=== PATIENT | male | born 1965 | race Caucasian/White ===

== ENCOUNTER 2019-05-07 15:01 | Observation (INO) | payer BC, MEDICAID ==
[2019-05-07 15:29] LABS: ABSOLUTE NEUTROPHIL COUNT 1.96; BASO % 0.5 % (0-6); EOS % 0.3 % (0-6); GRAN % 49.5 % (47-80); HEMATOCRIT 45.5 % (42.0-52.0); HEMOGLOBIN 15.5 gm/dl (14.0-18.0); LYMPH % 41.4 % (16-45); MEAN CELL VOLUME 92.1 fl (81-97); MEAN CORPUSCULAR HEMOGLOBIN 31.4 pg (27-33); MEAN CORPUSCULAR HGB CONC 34.1 g/dl (32-36); MEAN PLATELET VOLUME 9.4 fl (7.4-10.4); MONO % 8.3 % (0-9); PLATELET COUNT 178 K/uL (130-400); RED BLOOD COUNT 4.94 M/uL (4.40-5.70); RED CELL DISTRIBUTION WIDTH 17.1 % (11.5-14.5)
--- NOTE | 2019-05-07 15:31 | Emergency Department Record ---
History of Present Illness - General Chief Complaint: Alcohol Intoxication Stated Complaint: SHAKEY,ALCOHOL POSIONING? Time Seen by Provider: 05/07/19 15:19 Source: Patient, RN notes reviewed Mode of Arrival: Ambulatory - History of Present Illness Initial Comments: drinking one fifth a day of vodka for years. He called the health line at work [facility] at [facility] and he was told to go to the ED for detox and than they would treat him. Vomiting today 6 times a day. health line [phone]. Last treatment for substance abuse was in [place] at [facility] for cocaine 20 years ago. No falls or trauma per patient. Family Dr Gunn patient complains about right upper quad pain. Patient said he had slight blood in his vomit. He states he hasn't eaten in a couple of days. Patient lives with son and . Time Since Last Drink: 6 -: Hour(s) Chronic Alcohol Use: Yes Previous Visits for Alcohol Intoxication?: Yes Recent Trauma: No Associated Symptoms: Abdominal pain, Nausea, Vomiting Treatments Prior to Arrival: None - [place] Coma Scale Eye Response: (4) Open spontaneously Motor Response: (6) Obeys commands Verbal Response: (5) Oriented Jennifer Total: 15 - Related Data Home Medications Medication Instructions Recorded Confirmed Last Taken No Home Med [NO HOME MEDS] 05/07/19 05/07/19 Unknown Allergies Allergy/AdvReac Type Severity Reaction Status Date / Time No Known Drug Intolerances Allergy Unknown PT UNSURE Verified 05/07/19 15:13 OF REACTION pistachio nut Allergy SWELLING Verified 05/07/19 15:13 OF THE TONGUE Allergies: Allergy Unknown PT UNSURE Uncoded 05/07/19 15:13 OF REACTION Travel Screening - Travel/Exposure Within Last 30 Days Have you traveled within the last 30 days?: Yes Location Detail:: [place] - Travel/Exposure Within Last Year Have you traveled outside the [place] in the last year?: No - Additonal Travel Details Have you been exposed to anyone with a communicable illness?: No - Travel Symptoms Symptom Screening: None Review of Systems Reviewed: No additional complaints except as noted below Constitutional: Reports: As per HPI. Denies: Chills, Fever, Malaise, Night sweats, Weakness, Weight change Eyes: Reports: As per HPI. Denies: Eye discharge, Eye pain, Photophobia, Vision change ENT: Reports: As per HPI. Denies: Congestion, Dental pain, Ear pain, Epistaxis, Hearing loss, Throat pain Respiratory: Reports: As per HPI. Denies: Cough, Dyspnea, Hemoptysis, Stridor, Wheezes Cardiovascular: Reports: As per HPI. Denies: Arrhythmia, Chest pain, Dyspnea on exertion, Edema, Murmurs, Orthopnea, Palpitations, Paroxysmal nocturnal dyspnea, Rheumatic Fever, Syncope Endocrine: Reports: As per HPI. Denies: Fatigue, Heat or cold intolerance, Polydipsia, Polyuria Gastrointestinal: Reports: As per HPI. Denies: Abdominal pain, Constipation, Diarrhea, Hematemesis, Hematochezia, Melena, Nausea, Vomiting Genitourinary: Reports: As per HPI. Denies: Dysuria, Frequency, Hematuria, Incontinence, Retention, Testicular pain, Testicular mass, Urgency Musculoskeletal: Reports: As per HPI. Denies: Arthralgia, Back pain, Gout, J oint swelling, Myalgia, Neck pain Skin: Reports: As per HPI. Denies: Bruising, Change in color, Change in hair/nails, Lesions, Pruritus, Rash Neurological: Reports: As per HPI. Denies: Abnormal gait, Confusion, Headache, Numbness, Paresthesias, Seizure, Tingling, Tremors, Vertigo, Weakness Psychiatric: Reports: As per HPI. Denies: Anxiety, Auditory hallucinations, Depression, Homicidal thoughts, Suicidal thoughts, Visual hallucinations Hematological/Lymphatic: Reports: As per HPI. Denies: Anemia, Blood Clots, Easy bleeding, Easy bruising, Swollen glands Past Medical History - SOCIAL HISTORY Smoking Status: Current every day smoker Alcohol Use: Heavy Drug Use: None - RESPIRATORY Hx Respiratory Disorders: No - CARDIOVASCULAR Hx Cardio Disorders: Yes Hx Hypertension: Yes - NEURO Hx Neuro Disorders: No Hx Seizures: No (denies) - GI Hx GI Disorders: Yes Hx Abdominal Pain: Yes Hx Reflux: Yes - Hx Genitourinary Disorders: No - ENDOCRINE Hx Endocrine Disorders: No - MUSCULOSKELETAL Hx Musculoskeletal Disorders: No - PSYCH Hx Psych Problems: Yes Hx Anxiety: Yes Hx Depression: Yes - HEMATOLOGY/ONCOLOGY Hx Hematology/Oncology Disorders: No Family Medical History Any Significant Family History?: Yes Hx Heart Disease: Father Hx Stroke: Brother/Sister Physical Exam - General General Appearance: Alert, Oriented x3, Cooperative, Mild distress - Head Head exam: Normal inspection - Eye Eye exam: Normal appearance, PERRL Pupils: Normal accommodation - ENT ENT exam: Normal exam, Mucous membranes moist, Normal external ear exam, Normal orophraynx, TM's normal bilaterally Ear exam: Normal external inspection. negative: External canal tenderness Nasal Exam: Normal inspection. negative: Discharge, Sinus tenderness Mouth exam: Normal external inspection, Tongue normal Teeth exam: Normal inspection. negative: Dental caries Throat exam: Normal inspection. negative: Tonsillar erythema, Tonsillar exudate - Neck Neck exam: Normal inspection, Full ROM. negative: Tenderness - Respiratory Respiratory exam: Normal lung sounds bilaterally. negative: Respiratory distre ss - Cardiovascular Cardiovascular Exam: Regular rate, Normal rhythm, Normal heart sounds - GI/Abdominal GI/Abdominal exam: Soft, Normal bowel sounds, Tenderness (right upper quad) - Rectal Rectal exam: Other (rectal exam brown stool , hemoccult sent to lab) - exam: Deferred - Extremities Extremities exam: Normal inspection, Full ROM, Normal capillary refill. negative: Tenderness - Back Back exam: Reports: Normal inspection, Full ROM. Denies: Muscle spasm, Rash noted, Tenderness - Neurological Neurological exam: Alert, Normal gait, Oriented X3, Reflexes normal - Psychiatric Psychiatric exam: Normal affect, Normal mood - Skin Skin exam: Dry, Intact, Normal color, Warm Course Vital Signs 05/07/19 15:06 Temperature 97.7 F Pulse Rate 86 Respiratory 24 Rate Blood Pressure 172/92 Pulse Ox 96 - Reevaluation(s) Reevaluation #1: discussed case with Dr Mederos and will place in observation to assist in going through detox. patient than wants to go to the alcohol treatment program his company has going through [employer]. 05/07/19 16:04 Medical Decision Making - Lab Data Result diagrams: 05/07/19 15:20 05/07/19 15:20 Disposition Clinical Impression: Alcohol withdrawal Qualifiers: Complication of substance-induced condition: uncomplicated Qualified Code(s): F10.230 - Alcohol dependence with withdrawal, uncomplicated Decision to Admit: Admit from ER Condition: (2) Stable Forms: Patient Portal Access Time of Disposition: 15:58 Quality - Quality Measures Quality Measures: N/A - Blood Pressure Screening Does Patient Have Any of the Following: No Blood Pressure Classification: Hypertensive Reading Systolic Measurement: 172 Diastolic Measurement: 92 Screening for High Blood Pressure: < First Hypertensive BP, F/U Documented > [[id number]] First Hypertensive Follow-up Interventions: Referral to alternative/primary care provider.
[2019-05-07 15:44] LABS: BLOOD UREA NITROGEN 14 mg/dL (6-20); CREATININE 0.7 mg/dL (0.7-1.2); EST GLOMERULAR FILTRATION RATE > 60 mL/min
[2019-05-07 15:45] LABS: ALCOHOL 0.159 g/dL (0-0.010); LIPASE 62 U/L (13-60); PROTHROMBIN TIME (PATIENT) 10.2 SECONDS (9.5-12.1); TOTAL PROTEIN 7.9 g/dL (6.6-8.7)
[2019-05-07] MEDS ORDERED: THIAMINE HCL IV 100 MG in 0.9 % SODIUM CHLORIDE 1000ML 1,000 ML IV SCH (15:45)
[2019-05-07 15:47] LABS: GLUCOSE,RANDOM 75 mg/dL (74-109)
[2019-05-07 15:49] LABS: ALBUMIN 4.8 g/dL (4.0-5.0); ALKALINE PHOSPHATASE 71 U/L (40-129); ALT/SGPT 26 U/L (<41); AST/SGOT 32 U/L (10.0-50.0); BILIRUBIN,DIRECT 0.2 mg/dL (0-0.3)
[2019-05-07 15:50] LABS: ACETAMINOPHEN < 5.0 ug/mL (10.0-30.0); SALICYLATE < 0.3 mg/dL (2.8-20)
[2019-05-07 15:58] LABS: AMMONIA 19 umol/L (16.0-60.0)
[2019-05-07] MEDS ORDERED: PANTOPRAZOLE SODIUM IV 40 MG VIAL IVP ONE (16:01)
[2019-05-07] MEDS ORDERED: LORAZEPAM 2 MG/ML VIAL IV PRN ×2 (16:11→16:54)
[2019-05-07] MEDS ORDERED: 0.9 % SODIUM CHLORIDE 1000ML 1,000 ML IV ONE (17:50)
[2019-05-07 17:59] LABS: URINE APPEARANCE CLEAR; URINE BILIRUBIN NEGATIVE (NEGATIVE); URINE BLOOD SMALL (NEGATIVE); URINE COLOR YELLOW; URINE GLUCOSE (UA) NEGATIVE (NEGATIVE); URINE KETONE 40 mg/dL (NEGATIVE); URINE LEUKOCYTE ESTERASE NEGATIVE (NEGATIVE); URINE NITRITE NEGATIVE (NEGATIVE); URINE PROTEIN NEGATIVE (NEGATIVE); URINE UROBILINOGEN 0.2 E.U./dL (0.20 - 1.00)
[2019-05-07 18:00] LABS: URINE EPITHELIAL CELLS NONE SEEN (FEW); URINE RBC 0 - 2 (NONE SEEN); URINE WBC NONE SEEN (0-2/hpf)
[2019-05-07] MEDS ORDERED: THIAMINE HCL IV 100 MG, MVI, ADULT NO.4 WITH VIT K 10 ML in POTASSIUM CHL 20MEQ IN 1L N... IV ONE ×3 (19:08)
[2019-05-07] MEDS ORDERED: ONDANSETRON HCL IV 4 MG/2 ML VIAL IVP PRN (19:10)
[2019-05-07] MEDS ORDERED: METOCLOPRAMIDE HCL 10 MG/2 ML VIAL IVP PRN (19:10)
--- NOTE | 2019-05-07 21:17 | CT SCAN REPORT ---
EXAMINATION: CT Neck Soft Tissues with IV Contrast EXAM DATE: 05/07/2019 9:02 PM TECHNIQUE: Standard protocol CT images of the neck were obtained with intravenous contrast. Sagittal and coronal images were reconstructed. IV Contrast: The amount and type of contrast are recorded in t he medical record. INDICATION: bloody sputum COMPARISON: None ENCOUNTER: Not applicable FINDINGS: Lung apices are unremarkable. The thyroid, submandibular and parotid glands are unremarkable. The lar ynx and hypopharynx as well as the base of tongue and epiglottis are unremarkable. Parapharyngeal fat planes are preserved. No retropharyngeal fluid collection. Osseous structures are intact. Visualized ventral brain is unremarkable. Visualized orbits are unremarkable. Small Thornwaldt cyst is incident ally noted. IMPRESSION: No pathologic adenopathy in the neck. No organized fluid collection. No findings to clearly explain b loody sputum findings. Dictated by: Jose Carlos Melgoza MD on 05/07/2019 9:12 PM. .
--- NOTE | 2019-05-07 21:18 | CT SCAN REPORT ---
EXAMINATION: CT Abdomen with IV Contrast EXAM DATE: 05/07/2019 9:02 PM TECHNIQUE: Standard protocol CT imaging of the abdomen was with intravenous contrast. IV Contrast: The amount and type of contrast are recorded in the medical record. INDICATION: RUQ pain COMPARISON: None ENCOUNTER: Not applicable CT ABDOMEN FINDINGS: Lung Bases: Included extent of the lung bases are clear. Hepatobiliary: There is diffuse fatty infiltration of the liver. Gallbladder is present. Pancreas: The pancreas is normal. Spleen: The spleen is not enlarged. Adrenals: 1.3 x 1.2 cm right adrenal nodule with Hounsfield units not compatible with simple adenoma on this contrast-enhanced study. Left adrenal gland is normal. Kidneys: No hydronephrosis bilaterally. Low density lesion lower pole left kidney measuring 1.5 cm wi th Hounsfield units compatible with a cyst. Visualized course of the ureters unremarkable. Gastrointestinal: Stomach appears unremarkable. Visualized bowel shows postsurgical change at the lev el of the right colon. No obstruction. Lymphatic System: There is no adenopathy within the upper abdomen. Vasculature: Normal caliber abdominal aorta. Peritoneum: There is no free fluid, free air, or inflammation in the upper abdomen. Abdominal Wall & Musculoskeletal: No suspicious bone lesions. IMPRESSION: 1.3 x 1.2 cm right adrenal nodule. Further evaluation on a nonemergent basis with adrenal protocol CT or MRI to fully characterize is recommended. Diffuse fatty infiltration of the liver. No other significant abnormality. Dictated by: Taras Dee MD on 05/07/2019 9:10 PM. .
[2019-05-07] MEDS: THIAMINE MONONITRATE 100 MG TABLET PO SCH (21:19)
[2019-05-07] MEDS: CHLORDIAZEPOXIDE 25 MG CAPSULE PO SCH (21:19)
--- NOTE | 2019-05-07 21:22 | CT SCAN REPORT ---
EXAMINATION: CT Chest with IV Contrast EXAM DATE: 05/07/2019 9:02 PM TECHNIQUE: Standard protocol CT imaging of the chest with intravenous contrast was performed. Coronal and sagittal images were reconstructed. IV Contrast: The amount and type of contrast are recorded in the medical record. INDICATION: bloody sputum/ RUQ pain COMPARISON: None ENCOUNTER: Not applicable CHEST FINDINGS: Base of Neck & Axillae: No pathologically enlarged lymph nodes. Mediastinum & Jeannette: There is no mediastinal or hilar adenopathy. Cardiovascular: The heart has a normal size. There is no pericardial effusion. The thoracic aorta an d main pulmonary artery have a normal caliber. Lung Parenchyma: The lungs are clear. Pleural Space: There are no pleural effusions. There is no pneumothorax. Upper Abdomen: Diffuse fatty infiltration of the liver. Chest Wall & Musculoskeletal: No suspicious bone lesions. IMPRESSION: No significant intrathoracic finding. Fatty infiltration of the liver. Dictated by: Taras Dee MD on 05/07/2019 9:17 PM. .
--- NOTE | 2019-05-07 22:15 | History & Physical ---
History of Present Illness - Date of Service Date of Service for History & Physical: 05/08/19 - History of Present Illness Admitting Diagnosis: alchol withdrawal History of Present Illness: Mr. Henning is a 53 y/o male with complaint of alcohol abuse. The patient says that he called his work help line yesterday morning and was told to go the ED for rehabilitation. He says that he has been drinking heavily for about 10 years. He mostly drinks about a 1/5th Vodka and uses cannabis daily but denies any other drugs.The patient says his drinking has affected his life because his left him this Sunday because of his excessive drinking and he has hada DUI some years ago. He denies recent drinking and driving and he has no other legal issues as a result. He is admitted to the General medical floor for alcohol detoxification. PCP : No PCP Travel Screening - Travel/Exposure Within Last 30 Days Have you traveled within the last 30 days?: No Location Detail:: [place] - Travel/Exposure Within Last Year Have you traveled outside the [place] in the last year?: No - Additonal Travel Details Have you been exposed to anyone with a communicable illness?: No - Travel Symptoms Symptom Screening: None Review of Systems Constitutional: Reports: As per HPI. Denies: Chills, Fever, Malaise, Night swe ats, Weakness, Weight change Eyes: Reports: As per HPI. Denies: Eye discharge, Eye pain, Photophobia, Vision change ENT: Reports: As per HPI. Denies: Congestion, Dental pain, Ear pain, Epistaxis, Hearing loss, Throat pain Respiratory: Reports: As per HPI. Denies: Cough, Dyspnea, Hemoptysis, Stridor, Wheezes Cardiovascular: Reports: As per HPI. Denies: Arrhythmia, Chest pain, Dyspnea on exertion, Edema, Murmurs, Orthopnea, Palpitations, Paroxysmal nocturnal dyspnea, Rheumatic Fever, Syncope Endocrine: Reports: As per HPI. Denies: Fatigue, Heat or cold intolerance, Polydipsia, Polyuria Gastrointestinal: Reports: As per HPI. Denies: Abdominal pain, Constipation, Diarrhea, Hematemesis, Hematochezia, Melena, Nausea, Vomiting Genitourinary: Reports: As per HPI. Denies: Dysuria, Frequency, Hematuria, Incontinence, Retention, Testicular pain, Testicular mass, Urgency Musculoskeletal: Reports: As per HPI. Denies: Arthralgia, Back pain, Gout, Joint swelling, Myalgia, Neck pain Skin: Reports: As per HPI. Denies: Bruising, Change in color, Change in hair/nails, Lesions, Pruritus, Rash Neurological: Reports: As per HPI. Denies: Abnormal gait, Confusion, Headache, Numbness, Paresthesias, Seizure, Tingling, Tremors, Vertigo, Weakness Psychiatric: Reports: As per HPI. Denies: Anxiety, Auditory hallucinations, Depression, Homicidal thoughts, Suicidal thoughts, Visual hallucinations Hematological/Lymphatic: Reports: As per HPI. Denies: Anemia, Blood Clots, Easy bleeding, Easy bruising, Swollen glands Past Medical History - SOCIAL HISTORY Smoking Status: Current every day smoker Alcohol Use: Heavy Drug Use: None - RESPIRATORY Hx Respiratory Disorders: No - CARDIOVASCULAR Hx Cardio Disorders: Yes Hx Hypertension: Yes - NEURO Hx Neuro Disorders: No Hx Seizures: No (denies) - GI Hx GI Disorders: Yes Hx Abdominal Pain: Yes Hx Reflux: Yes - Hx Genitourinary Disorders: No - ENDOCRINE Hx Endocrine Disorders: No - MUSCULOSKELETAL Hx Musculoskeletal Disorders: No - PSYCH Hx Psych Problems: Yes Hx Anxiety: Yes Hx Depression: Yes - HEMATOLOGY/ONCOLOGY Hx Hematology/Oncology Disorders: No Family Medical History Any Significant Family History?: Yes Hx Alcohol Use: Brother/Sister Hx Heart Disease: Father Hx Stroke: Brother/Sister H&P Meds/Allergies - Allergies Allergies: Allergies Allergy/AdvReac Type Severity Reaction Status Date / Time No Known Drug Intolerances Allergy Unknown PT UNSURE Verified 05/07/19 15:13 OF REACTION pistachio nut Allergy SWELLING Verified 05/07/19 15:13 OF THE TONGUE Allergies: Allergy Unknown PT UNSURE Uncoded 05/07/19 15:13 OF REACTION - Home Medications Home Medications Medication Instructions Recorded Confirmed Last Taken No Home Med [NO HOME MEDS] 05/07/19 05/07/19 Unknown - Active Medications Active Medications: Current Medications Chlordiazepoxide HCl (Librium) 50 mg PO TID [facility] Last Admin: 05/07/19 21:19 Dose: 50 mg Documented by: Folic Acid () 1 mg PO DAILY [facility] Stop: 05/11/19 10:01 Thiamine HCl 100 mg/ Sodium (Chloride) 1,001 mls @ 100 mls/hr IV NOW [facility] Last Admin: 05/07/19 15:50 Dose: 100 mls/hr Documented by: Sodium Chloride () 1,000 mls @ 100 mls/hr IV .Q10H ONE Stop: 05/08/19 03:49 Last Infusion: 05/07/19 22:13 Dose: Infused Documented by: Thiamine HCl 100 mg/Multivitamins/Minerals 10 ml/Potassium Chloride/Sodium Chloride 1,011 mls @ 125 mls/hr IV .Q8H6M ONE Stop: 05/08/19 03:13 Last Admin: 05/07/19 20:35 Dose: 125 mls/hr Documented by: Lorazepam (Ativan) 1 mg IV Q2H PRN PRN Reason: ALCOHOL WITHDRAWAL Metoclopramide HCl (Reglan) 10 mg IVP Q6H PRN PRN Reason: NAUSEA Multivitamins/Minerals (Centrum) 1 tab PO DAILY LYLA Ondansetron HCl (Zofran) 4 mg IVP Q4H PRN PRN Reason: NAUSEA Physical Exam - Vital Signs Vital Signs: Vital Signs - Last 24 Hrs Temp Pulse Pulse Resp BP BP Pulse Ox 05/07/19 20:00 98.7 F 78 20 163/75 96 05/07/19 18:44 18 05/07/19 17:50 98.8 F 68 16 147/71 96 05/07/19 17:14 98.2 F 78 18 153/77 96 05/07/19 15:06 97.7 F 86 24 172/92 96 - General General Appearance: Alert, Oriented x3, Cooperative, Mild distress - Head Head exam: Normal inspection - Eye Eye exam: Normal appearance, PERRL Pupils: Normal accommodation - ENT ENT exam: Normal exam, Mucous membranes moist, Normal external ear exam, Normal orophraynx, TM's normal bilaterally Ear exam: Normal external inspection. negative: External canal tenderness Nasal Exam: Normal inspection. negative: Discharge, Sinus tenderness Mouth exam: Normal external inspection, Tongue normal Teeth exam: Normal inspection. negative: Dental caries Throat exam: Normal inspection. negative: Tonsillar erythema, Tonsillar exudate - Neck Neck exam: Normal inspection, Full ROM. negative: Tenderness - Respiratory Respiratory exam: Normal lung sounds bilaterally. negative: Respiratory distress - Cardiovascular Cardiovascular Exam: Regular rate, Normal rhythm, Normal heart sounds - GI/Abdominal GI/Abdominal exam: Soft, Normal bowel sounds, Tenderness (right upper quad) - Rectal Rectal exam: Other (rectal exam brown stool , hemoccult sent to lab) - exam: Deferred - Extremities Extremities exam: Normal inspection, Full ROM, Normal capillary refill. negative: Tenderness - Back Back exam: Reports: Normal inspection, Full ROM. Denies: Muscle spasm, Rash noted, Tenderness - Neurological Neurological exam: Alert, Normal gait, Oriented X3, Reflexes normal - Psychiatric Psychiatric exam: Normal affect, Normal mood - Skin Skin exam: Dry, Intact, Normal color, Warm Results - Labs Result Diagrams: 05/08/19 06:10 05/08/19 06:10 Labs Last 24 Hours: Laboratory Results - last 24 hr 05/07/19 05/07/19 05/07/19 15:20 15:20 15:20 WBC 4.0 L RBC 4.94 Hgb 15.5 Hct 45.5 MCV 92.1 MCH 31.4 MCHC 34.1 RDW 17.1 H Plt Count 178 MPV 9.4 Gran % 49.5 Lymphocytes % 41.4 Monocytes % 8.3 Eosinophils % 0.3 Basophils % 0.5 Absolute Neutrophils 1.96 PT INR Sodium 137 Potassium 3.6 Chloride 93 L Carbon Dioxide 18.0 L Anion Gap 26.0 H BUN 14 Creatinine 0.7 Estimated GFR > 60 Random Glucose 75 Calcium 9.0 Magnesium 1.7 Total Bilirubin Direct Bilirubin AST ALT Alkaline Phosphatase Ammonia Total Protein Albumin Lipase 62 H Urine Color Urine Appearance Urine pH Ur Specific [place] Urine Protein Urine Glucose (UA) Urine Ketones Urine Blood Urine Nitrite Urine Bilirubin Urine Urobilinogen Ur Leukocyte Esterase Urine RBC Urine WBC Ur Epithelial Cells Stool Occult Blood Salicylates Urine Opiates Screen Detected Ur Oxycodone Screen Detected Urine Methadone Screen Detected Ur Propoxyphene Screen Detected Acetaminophen Ur Barbituates Screen Detected Ur Tricyclics Screen Detected Ur Phencyclidine Scrn Detected Ur Amphetamine Screen Detected U Methamphetamines Scrn Detected U Benzodiazepines Scrn Detected Urine Cocaine Screen Detected Urine Cannabis Screen Not detected Ethyl Alcohol 0.159 H 05/07/19 05/07/19 05/07/19 15:20 15:20 15:49 WBC RBC Hgb Hct MCV MCH MCHC RDW Plt Count MPV Gran % Lymphocytes % Monocytes % Eosinophils % Basophils % Absolute Neutrophils PT 10.2 INR 1.0 Sodium Potassium Chloride Carbon Dioxide Anion Gap BUN Creatinine Estimated GFR Random Glucose Calcium Magnesium Total Bilirubin 0.70 Direct Bilirubin 0.2 AST 32 ALT 26 Alkaline Phosphatase 71 Ammonia 19 Total Protein 7.9 Albumin 4.8 Lipase Urine Color Urine Appearance Urine pH Ur Specific [place] Urine Protein Urine Glucose (UA) Urine Ketones Urine Blood Urine Nitrite Urine Bilirubin Urine Urobilinogen Ur Leukocyte Esterase Urine RBC Urine WBC Ur Epithelial Cells Stool Occult Blood Negative Salicylates < 0.3 L Urine Opiates Screen Ur Oxycodone Screen Urine Methadone Screen Ur Propoxyphene Screen Acetaminophen < 5.0 L Ur Barbituates Screen Ur Tricyclics Screen Ur Phencyclidine Scrn Ur Amphetamine Screen U Methamphetamines Scrn U Benzodiazepines Scrn Urine Cocaine Screen Urine Cannabis Screen Ethyl Alcohol 05/07/19 05/07/19 17:59 19:00 WBC RBC Hgb Hct MCV MCH MCHC RDW Plt Count MPV Gran % Lymphocytes % Monocytes % Eosinophils % Basophils % Absolute Neutrophils PT INR Sodium Potassium Chloride Carbon Dioxide Anion Gap BUN Creatinine Estimated GFR Random Glucose Calcium Magnesium Cancelled Total Bilirubin Direct Bilirubin AST ALT Alkaline Phosphatase Ammonia Total Protein Albumin Lipase Urine Color Yellow Urine Appearance Clear Urine pH 5.5 Ur Specific [place] >= 1.030 Urine Protein Negative Urine Glucose (UA) Negative Urine Ketones 40 mg/dl H Urine Blood Small H Urine Nitrite Negative Urine Bilirubin Negative Urine Urobilinogen 0.2 Ur Leukocyte Esterase Negative Urine RBC 0 - 2 Urine WBC None seen Ur Epithelial Cells None seen Stool Occult Blood Salicylates Urine Opiates Screen Ur Oxycodone Screen Urine Methadone Screen Ur Propoxyphene Screen Acetaminophen Ur Barbituates Screen Ur Tricyclics Screen Ur Phencyclidine Scrn Ur Amphetamine Screen U Methamphetamines Scrn U Benzodiazepines Scrn Urine Cocaine Screen Urine Cannabis Screen Ethyl Alcohol VTE H&P Assessment - Risk for VTE Risk for VTE: Yes Risk Level: High Risk Assessment Date: 05/08/19 Risk Assessment Time: 13:06 VTE Orders Placed or Will Be Placed: Yes Plan - Detailed Diagnosis and Plan (1) EtOH dependence Current Visit: Yes Status: Acute Qualifiers: Substance use status: in withdrawal Base Code: F10.20 - ALCOHOL DEPENDENCE, UNCOMPLICATED Comment: 05/08/19: - Hx of Etoh abuse with last use reported as yesterday morming at 8 am. - Etoh levels 0.159. - Librium 50mg TID LYLA, Ativan 1mg Q2H PRN - IVF: Nacl 0.9% w/ potassium @ 125mL/hr, thiamine folic acid supplementation. - Will need continued outpatient management for Etoh dependence. (2) Nausea Current Visit: Yes Status: Acute Base Code: R11.0 - NAUSEA Comment: 05/08/19: - Reglan 10 mg Q6h PRN, Zofran 4mg Q4H PRN. (3) Fatty liver, alcoholic Current Visit: Yes Status: Acute Base Code: K70.0 - ALCOHOLIC FATTY LIVER Comment: 05/08/19: - CT abdomen w/ contrast suggestive of diffuse fatty liver. Lipase 62, ALT, AST 32/26 - Hx of polysubstance abuse. - Etoh levels 0.159 (4) Mass of right adrenal gland Current Visit: Yes Status: Acute Base Code: E27.8 - OTHER SPECIFIED DISORDERS OF ADRENAL GLAND Comment: 05/08/19: - Incidental finding of right adrenal mass measuring 1.3x1.2 cm. - Outpatient workup recommended. (5) DVT prophylaxis Current Visit: Yes Status: Acute Base Code: Z29.9 - ENCOUNTER FOR PROPHYLACTIC MEASURES, UNSPECIFIED Comment: 05/08/19: - Lovenox 40mg sq daily. (6) Patient is full code Current Visit: Yes Status: Acute Base Code: Z78.9 - OTHER SPECIFIED HEALTH STATUS Comment: 05/08/19: - The patient is full code.
[2019-05-07] MEDS: NICOTINE 21 MG/24 HOUR PATCH TD SCH (23:55)
[2019-05-08 06:37] LABS: BASO % 0.4 % (0-6); EOS % 0.8 % (0-6); GRAN % 58.1 % (47-80); HEMATOCRIT 39.2 % (42.0-52.0); HEMOGLOBIN 13.1 gm/dl (14.0-18.0); LYMPH % 29.1 % (16-45); MEAN CELL VOLUME 93.3 fl (81-97); MEAN CORPUSCULAR HGB CONC 33.4 g/dl (32-36); MEAN PLATELET VOLUME 9.5 fl (7.4-10.4); MONO % 11.6 % (0-9); PLATELET COUNT 138 K/uL (130-400); RED CELL DISTRIBUTION WIDTH 16.3 % (11.5-14.5)
[2019-05-08 06:54] LABS: BLOOD UREA NITROGEN 11 mg/dL (6-20); CREATININE 0.6 mg/dL (0.7-1.2); EST GLOMERULAR FILTRATION RATE > 60 mL/min; GLUCOSE,RANDOM 88 mg/dL (74-109)
[2019-05-08 06:56] LABS: MEAN CORPUSCULAR HEMOGLOBIN 31.1 pg (27-33)
[2019-05-08 08:28] LABS: AMPHETAMINE SCREEN URINE NOT DETECTED; BARBITURATE SCREEN URINE NOT DETECTED; BENZODIAZEPINE SCREEN URINE DETECTED; COCAINE SCREEN URINE NOT DETECTED; METHADONE SCREEN URINE NOT DETECTED; METHAMPHETAMINE SCREEN NOT DETECTED; OPIATE SCREEN URINE NOT DETECTED; OXYCODONE SCREEN URINE NOT DETECTED; PHENCYCLIDINE SCREEN URINE NOT DETECTED; PROPOXYPHENE SCREEN URINE NOT DETECTED; THC SCREEN URINE DETECTED; TRICYCLIC ANTIDEPRESSANT SCRN NOT DETECTED
[2019-05-08 08:46] LABS: TRICYCLIC ANTIDEPRESSANT SCRN NOT DETECTED
[2019-05-08 08:47] LABS: BARBITURATE SCREEN URINE NOT DETECTED; METHADONE SCREEN URINE NOT DETECTED
[2019-05-08 08:48] LABS: BENZODIAZEPINE SCREEN URINE NOT DETECTED; THC SCREEN URINE DETECTED
[2019-05-08 08:49] LABS: AMPHETAMINE SCREEN URINE NOT DETECTED; OPIATE SCREEN URINE NOT DETECTED
[2019-05-08 08:50] LABS: COCAINE SCREEN URINE NOT DETECTED; PHENCYCLIDINE SCREEN URINE NOT DETECTED; PROPOXYPHENE SCREEN URINE NOT DETECTED
[2019-05-08 08:51] LABS: METHAMPHETAMINE SCREEN NOT DETECTED; OXYCODONE SCREEN URINE NOT DETECTED
[2019-05-08] MEDS: CHLORDIAZEPOXIDE 25 MG CAPSULE PO SCH (09:50)
[2019-05-08] MEDS: THIAMINE MONONITRATE 100 MG TABLET PO SCH (09:52)
[2019-05-08] MEDS: NICOTINE 21 MG/24 HOUR PATCH TD SCH (09:53)
[2019-05-08] MEDS ORDERED: FOLIC ACID 1 MG TABLET PO SCH (10:00)
[2019-05-08] MEDS ORDERED: MULTIVITAMINS/MINERALS TABLET PO SCH (10:00)
[2019-05-08] MEDS ORDERED: REMOVE PATCH 1 EACH MISC TD SCH (10:00)
--- NOTE | 2019-05-08 13:35 | Discharge Summary ---
Providers Discharge Summary Date: 05/08/19 Date of admission: 05/07/19 17:41 Attending physician: FIDE OTERO Consults: Consult Orders 05/07/19 16:11 Consult - Case Management Now Comment: Reason For Exam: Alcohol Withdrawal Physical Exam - Vital Signs Vital Signs: Vital Signs - Last 24 Hrs Temp Pulse Pulse Resp BP BP BP 05/08/19 12:00 98.7 F 94 H 17 159/85 05/08/19 09:00 84 18 05/08/19 07:57 98.4 F 84 18 169/91 05/08/19 04:48 98.9 F 74 16 149/86 05/07/19 23:51 98.8 F 85 20 152/73 05/07/19 20:00 98.7 F 78 20 163/75 05/07/19 18:44 18 05/07/19 17:50 98.8 F 68 16 147/71 05/07/19 17:14 98.2 F 78 18 153/77 05/07/19 15:06 97.7 F 86 24 172/92 Pulse Ox 05/08/19 12:00 95 05/08/19 09:00 05/08/19 07:57 97 05/08/19 04:48 97 05/07/19 23:51 96 05/07/19 20:00 96 05/07/19 18:44 05/07/19 17:50 96 05/07/19 17:14 96 05/07/19 15:06 96 - General General Appearance: Alert, Oriented x3, Cooperative, Mild distress - Head Head exam: Normal inspection - Eye Eye exam: Normal appearance, PERRL Pupils: Normal accommodation - ENT ENT exam: Normal exam, Mucous membranes moist, Normal external ear exam, Normal orophraynx, TM's normal bilaterally Ear exam: Normal external inspection. negative: External canal tenderness Nasal Exam: Normal inspection. negative: Discharge, Sinus tenderness Mouth exam: Normal external inspection, Tongue normal Teeth exam: Normal inspection. negative: Dental caries Throat exam: Normal inspection. negative: Tonsillar erythema, Tonsillar exudate - Neck Neck exam: Normal inspection, Full ROM. negative: Tenderness - Respiratory Respiratory exam: Normal lung sounds bilaterally. negative: Respiratory distress - Cardiovascular Cardiovascular Exam: Regular rate, Normal rhythm, Normal heart sounds - GI/Abdominal GI/Abdominal exam: Soft, Normal bowel sounds, Tenderness (right upper quad) - Rectal Rectal exam: Other (rectal exam brown stool , hemoccult sent to lab) - exam: Deferred - Extremities Extremities exam: Normal inspection, Full ROM, Normal capillary refill. negative: Tenderness - Back Back exam: Reports: Normal inspection, Full ROM. Denies: Muscle spasm, Rash noted, Tenderness - Neurological Neurological exam: Alert, Normal gait, Oriented X3, Reflexes normal - Psychiatric Psychiatric exam: Normal affect, Normal mood - Skin Skin exam: Dry, Intact, Normal color, Warm Hospitalization - Hospitalization Admission Diagnosis: alchol withdrawal - Problem List/Discharge Diagnosis (1) EtOH dependence Current Visit: Yes Status: Acute Discharge Diagnosis: Substance use status: in withdrawal Base Code: F10.20 - ALCOHOL DEPENDENCE, UNCOMPLICATED Comment: 05/08/19: - Hx of Etoh abuse with last use reported as yesterday morming at 8 am. - Etoh levels 0.159. - Librium 50mg TID LYLA, Ativan 1mg Q2H PRN - IVF: Nacl 0.9% w/ potassium @ 125mL/hr, thiamine folic acid supplementation. - Will need continued outpatient management for Etoh dependence. (2) Nausea Current Visit: Yes Status: Acute Base Code: R11.0 - NAUSEA Comment: 05/08/19: - Reglan 10 mg Q6h PRN, Zofran 4mg Q4H PRN. (3) Fatty liver, alcoholic Current Visit: Yes Status: Acute Base Code: K70.0 - ALCOHOLIC FATTY LIVER Comment: 05/08/19: - CT abdomen w/ contrast suggestive of diffuse fatty liver. Lipase 62, ALT, AST 32/26 - Hx of polysubstance abuse. - Etoh levels 0.159 (4) Mass of right adrenal gland Current Visit: Yes Status: Acute Base Code: E27.8 - OTHER SPECIFIED DISORDERS OF ADRENAL GLAND Comment: 05/08/19: - Incidental finding of right adrenal mass measuring 1.3x1.2 cm. - Outpatient workup recommended. (5) DVT prophylaxis Current Visit: Yes Status: Acute Base Code: Z29.9 - ENCOUNTER FOR PROPHYLACTIC MEASURES, UNSPECIFIED Comment: 05/08/19: - Lovenox 40mg sq daily. (6) Patient is full code Current Visit: Yes Status: Acute Base Code: Z78.9 - OTHER SPECIFIED HEALTH STATUS Comment: 05/08/19: - The patient is full code. - Hospitalization Course Hospital Course: Mr. Henning is a 53 y/o male with complaint of alcohol abuse. The patient says that he called his work help line yesterday morning and was told to go the ED for rehabilitation. He says that he has been drinking heavily for about 10 years. He mostly drinks about a 1/5th Vodka and uses cannabis daily but denies any other drugs.The patient says his drinking has affected his life because his left him this Sunday because of his excessive drinking and he has had a DUI some years ago. He denies recent drinking and driving and he has no other legal issues as a result. He is admitted to the General medical floor for alcohol detoxification. The patient's presenting CIWA score was 22. He was started on Librium TID, Ativan Q1 PRN, IV fluids and multivitamins. He states that this morning he is feeling much better and has no symptoms. PCP : No PCP Procedures: Imaging and X-Rays 05/07/19 18:16 CHEST W CONTRAST [CT] Stat SOFT TISSUE NECK W CONTRAST [CT] Stat 05/07/19 18:20 ABDOMEN W CONTRAST [CT] Stat Cardiology Procedures 05/07/19 19:11 Telemetry [Environmental Health Nurse] .Continuous Abnormal Labs: Abnormal Lab Results 05/07/19 05/07/19 05/07/19 Range/Units 15:20 15:20 15:20 WBC 4.0 L (4.2-12.2) K/uL RBC (4.40-5.70) M/uL Hgb (14.0-18.0) gm/dl Hct (42.0-52.0) % RDW 17.1 H (11.5-14.5) % Monocytes % (0-9) % Sodium (136-145) mmol/L Chloride 93 L (98-107) mmol/L Carbon Dioxide 18.0 L (22-29) mmol/L Anion Gap 26.0 H (7-16) Creatinine (0.7-1.2) mg/dL Calcium (8.6-10.0) mg/dL Lipase 62 H (13-60) U/L Urine Ketones (NEGATIVE) Urine Blood (NEGATIVE) Salicylates < 0.3 L (2.8-20) mg/dL Acetaminophen < 5.0 L (10.0-30.0) ug/mL Ethyl Alcohol 0.159 H (0-0.010) g/dL 05/07/19 05/08/19 05/08/19 Range/Units 17:59 06:10 06:10 WBC (4.2-12.2) K/uL RBC 4.20 L (4.40-5.70) M/uL Hgb 13.1 L (14.0-18.0) gm/dl Hct 39.2 L (42.0-52.0) % RDW 16.3 H (11.5-14.5) % Monocytes % 11.6 H (0-9) % Sodium 135 L (136-145) mmol/L Chloride 97 L (98-107) mmol/L Carbon Dioxide 21.0 L (22-29) mmol/L Anion Gap 17.0 H (7-16) Creatinine 0.6 L (0.7-1.2) mg/dL Calcium 8.5 L (8.6-10.0) mg/dL Lipase (13-60) U/L Urine Ketones 40 mg/dl H (NEGATIVE) Urine Blood Small H (NEGATIVE) Salicylates (2.8-20) mg/dL Acetaminophen (10.0-30.0) ug/mL Ethyl Alcohol (0-0.010) g/dL Condition at Discharge: (2) Stable Discharge Medications - Discharge Medications Prescriptions: RX: Folic Acid 1 mg PO DAILY #30 tablet RX: Chlordiazepoxide HCl [Librium] 50 mg PO TID #20 capsule RX: Nicotine [Nicotine 21Mg] 1 patch TD DAILY #30 patch RX: Thiamine Mononitrate [Vitamin B-1] 100 mg PO BID 60 Days tablet Home Medications: Ambulatory Orders Chlordiazepoxide HCl [Librium] 50 mg PO TID #20 capsule 05/08/19 [Last Taken Unknown] Folic Acid 1 mg PO DAILY #30 tablet 05/08/19 [Last Taken Unknown] Nicotine [Nicotine 21Mg] 1 patch TD DAILY #30 patch 05/08/19 [Last Taken Unknown] Thiamine Mononitrate [Vitamin B-1] 100 mg PO BID 60 Days tablet 05/08/19 [Last Taken Unknown] Discharge Plan - Discharge Instructions Additional Instructions: Take Thiamine 100mg twice daily Folic acid 1 tab daily Librium 50mg three times daily only as needed. Please follow up at [facility] clinic to establish care. Quality Measures - Quality Measures Quality Measures: Documentation of Current Medications in Medical Record, Screen ing for High Blood Pressure and F/U Documented - Current Medications Quality Measure: Measure #130: Documentation of Current Medications Documentation of Current Medications: <Current Medications Documented/Reviewed> [[id number]] - Blood Pressure Screening Quality Measure: Screening for High Blood Pressure and Follow-Up Documented Does Patient Have Any of the Following: No, Active Dx of HTN Blood Pressure Classification: Hypertensive Reading Systolic Measurement: 172 Diastolic Measurement: 92 Screening for High Blood Pressure: < First Hypertensive BP, F/U Documented > [G [id number]] First Hypertensive Follow-up Interventions: Follow-up with rescreen GT 1 day and LT 4 weeks. - Elder Abuse Suspicion Index EASI Reference Information: Troy KHAN, Corina C, Elizabeth D, Armond Brewer.Development and validation of a tool to assist physicians identification of elder abuse: The Elder Abuse Suspicion Index (EASI ). Journal of Elder Abuse and Neglect, 2008; 20 (3): 276-300.
== END 2019-05-08 14:35 | disposition home or self-care (01) ==
LOC: ER 15:01 → MEDSURG 17:41
PROVIDERS: ADMIT Internal Medicine; ATTEND Internal Medicine
DX: I10 Essential (primary) hypertension (principal); K21.9 Gastro-esophageal reflux disease without esophagitis; F17.210 Nicotine dependence, cigarettes, uncomplicated; F10.230 Alcohol dependence with withdrawal, uncomplicated
CPT/HCPCS: 83735; 83690; 82140; 85025 ×2; 85610; 80076; 80048 ×2; 81001; 82272; 80305 ×2; 74160; 71260; 70491; G0378 ×2; G0480 ×3; Q9967; J2060; 80320; 80329; 96365; 96366; 96374; 99220; 99285; C9113; J3411; J7030